=== PATIENT | female | born 1985 | race Caucasian/White ===

== ENCOUNTER 2017-05-04 06:10 | Inpatient (IN) | payer OTHER ==
[~2017-05-04] VITALS: Ht 167.6 cm; Wt 2.7 kg
[2017-05-04] MEDS ORDERED: ATABEX DHA 200200 MG PO (06:59)
[2017-05-07] MEDS ORDERED: DOCUSATE SODIU100 MG PO (13:54)
[2017-05-07] MEDS ORDERED: Mylicon 125MG PO (13:54)
[2017-05-07] MEDS ORDERED: PREPLUS CA-FE1 EACH PO (13:54)
[2017-05-07] MEDS ORDERED: OXYC1TAB9 PO (13:54)
== END 2017-05-07 14:07 | disposition home or self-care (01) | DRG 766 ==
LOC: LDR 06:10 → OB/GYN 06:10 → O/R 14:10 → OB/GYN 15:19
PROVIDERS: Obstetrics & Gynecology
PROC: 4A1HXCZ Monitoring of Products of Conception, Cardiac Rate, External Approach (ICD-10-PCS; 2017-05-04)
PROC: 4A033R1 Measurement of Arterial Saturation, Peripheral, Percutaneous Approach (ICD-10-PCS; 2017-05-04)
PROC: 0UT70ZZ Resection of Bilateral Fallopian Tubes, Open Approach (ICD-10-PCS; 2017-05-04)
PROC: 10D00Z1 Extraction of Products of Conception, Low, Open Approach (ICD-10-PCS; principal; 2017-05-04 11:00)
DX: O34.211 Maternal care for low transverse scar from previous cesarean delivery (principal); O69.81X0 Labor and delivery complicated by cord around neck, without compression, not applicable or unspecified; O99.820 Streptococcus B carrier state complicating pregnancy; O99.513 Diseases of the respiratory system complicating pregnancy, third trimester; J45.909 Unspecified asthma, uncomplicated; Z3A.38 38 weeks gestation of pregnancy; Z37.0 Single live birth; Z30.2 Encounter for sterilization; Z64.1 Problems related to multiparity